=== PATIENT | female | born 2000 | race Caucasian/White ===

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

== ENCOUNTER 2022-05-01 18:12 | Emergency (ER) | payer BC ==
[~2022-05-01] VITALS: Ht 152.4 cm; Wt 62.6 kg
[~2022-05-01 18:12] MED LIST changes: +FAMO-90 PO; +IMO2 PO; +ONDA-188 PO
[2022-05-01 18:33] VITALS: BP 123/76
[2022-05-01] MEDS ORDERED: KETOROLAC 30 MG/ML VIAL IM ONE (19:00)
[2022-05-01 20:06] LABS: APPEARANCE,URINE CLEAR (CLEAR); BILIRUBIN,URINE NEGATIVE (NEGATIVE); BLOOD, URINE NEGATIVE (NEGATIVE); COLOR,URINE YELLOW (YELLOW); LEUKOCYTE ESTERASE ,URINE NEGATIVE (NEGATIVE); NITRITE, URINE NEGATIVE (NEGATIVE); UGLUCOSE NEGATIVE (NEGATIVE)
[2022-05-01] MEDS ORDERED: KETOROLAC 30 MG/ML VIAL ONE (20:23)
[2022-05-01] MEDS ORDERED: IBUP-2213 PO (20:43)
[2022-05-01] MEDS ORDERED: CYCL-711 PO (20:43)
[2022-05-01] MEDS ORDERED: LID5T TP (20:43)
[2022-05-01 20:53] VITALS: BP 98/60
--- NOTE | 2022-05-01 20:53 | NUR ---
Patient discharged with v/s stable. Written and verbal after care instructions given and explained. Patient alert, oriented and verbalized understanding of instructions. Ambulatory with steady gait. All questions addressed prior to discharge. ID band removed. Patient advised to follow up with PMD. Rx of FLEXERIL LIDODERM PATCH IBUPROFEN given. Patient educated on indication of medication including possible reaction and side effects. Opportunity to ask questions provided and answered.
== END 2022-05-01 20:53 | disposition home or self-care (01) ==
LOC: MED 18:12
DX: R07.81 Pleurodynia (principal); R03.0 Elevated blood-pressure reading, without diagnosis of hypertension; Z79.899 Other long term (current) drug therapy
CPT/HCPCS: 36415; 71045; 81003; 85379; 93005; 96372; 99285; J1885

== ENCOUNTER 2022-06-10 18:05 | Emergency (ER) | payer BC ==
[~2022-06-10] VITALS: Ht 154.9 cm; Wt 54.4 kg
[~2022-06-10 18:05] MED LIST changes: +CYCL-711 PO; +LID5T TP
[2022-06-10 18:14] VITALS: BP 121/75
[2022-06-10 20:00] LABS: APPEARANCE,URINE CLEAR (CLEAR); BILIRUBIN,URINE NEGATIVE (NEGATIVE); BLOOD, URINE 3+ (NEGATIVE); COLOR,URINE YELLOW (YELLOW); LEUKOCYTE ESTERASE ,URINE NEGATIVE (NEGATIVE); NITRITE, URINE NEGATIVE (NEGATIVE); PH,URINE 7.5 (5.0-9.0); UGLUCOSE NEGATIVE (NEGATIVE)
[2022-06-10 20:12] LABS: OTHER CASTS, URINE None Seen /LPF (None Seen); WBC,URINE 0-5 /HPF (0-5)
== END 2022-06-10 23:51 | disposition home or self-care (01) ==
LOC: MED 18:05
DX: N93.9 Abnormal uterine and vaginal bleeding, unspecified (principal); G43.909 Migraine, unspecified, not intractable, without status migrainosus; Z79.899 Other long term (current) drug therapy
CPT/HCPCS: 81001; 81025; 99283

== ENCOUNTER 2022-09-02 10:08 | Emergency (ER) | payer BC ==
[~2022-09-02] VITALS: Ht 149.9 cm; Wt 65.3 kg
[2022-09-02 10:12] VITALS: BP 118/70
--- NOTE | 2022-09-02 10:19 | NUR ---
AMBULATED TO BED 12
[2022-09-02 11:17] LABS: BASOPHILS % (AUTO) 0.5 % (0.0-2.0); EOSINOPHILS # (AUTO) 0.1 K/uL (0-0.4); EOSINOPHILS % (AUTO) 1.1 % (0.0-4.0); HEMATOCRIT 41.2 % (36-48); HEMOGLOBIN 14.1 g/dL (12.0-16.0); LYMPHOCYTES # (AUTO) 1.7 K/uL (2.5-16.5); LYMPHOCYTES % (AUTO) 33.4 % (20.5-51.1); MEAN CORPUSCULAR HEMOGLOBIN 28 pg (27-31); MEAN CORPUSCULAR HGB CONC 34 g/dL (33-37); MEAN CORPUSCULAR VOLUME 81.3 fL (80-94); MONOCYTES # (AUTO) 0.5 K/uL (0.8-1.0); MONOCYTES % (AUTO) 9.4 % (1.7-9.3); NEUTROPHILS # (AUTO) 2.9 K/uL (1.8-7.7); NEUTROPHILS % (AUTO) 55.6 % (42.2-75.2); PLATELET COUNT (AUTO) 231 K/uL (140-450); RED BLOOD CELL COUNT(AUTO) 5.07 MIL/uL (4.20-5.40); RED CELL DISTRIBUTION WIDTH 15.3 % (11.6-13.7); WHITE BLOOD COUNT (AUTO) 5.2 K/uL (4.5-11.0)
[2022-09-02 11:30] LABS: BILIRUBIN,URINE NEGATIVE (NEGATIVE); BLOOD, URINE 1+ (NEGATIVE); COLOR,URINE YELLOW (YELLOW); LEUKOCYTE ESTERASE ,URINE NEGATIVE (NEGATIVE); NITRITE, URINE NEGATIVE (NEGATIVE); PH,URINE 7.5 (5.0-9.0); UGLUCOSE NEGATIVE (NEGATIVE)
[2022-09-02 11:53] LABS: APPEARANCE,URINE SLIGHTLY CLOUDY (CLEAR)
[2022-09-02 14:21] VITALS: BP 118/70
[2022-09-02 14:22] LABS: WBC,URINE 0-5 /HPF (0-5)
--- NOTE | 2022-09-02 14:22 | NUR ---
Patient discharged with v/s stable. Written and verbal after care instructions given and explained. Patient verbalized understanding. Ambulatory with steady gait. All questions addressed prior to discharge. Advised to follow up with PMD.
== END 2022-09-02 14:11 | disposition home or self-care (01) ==
LOC: MED 10:08
DX: O20.0 Threatened abortion (principal); Z3A.01 Less than 8 weeks gestation of pregnancy; Z79.899 Other long term (current) drug therapy; Z79.1 Long term (current) use of non-steroidal anti-inflammatories (NSAID); Z91.013 Allergy to seafood
CPT/HCPCS: 36415; 76817; 81001; 81025; 84702; 85025; 86900; 86901; 99284; Q0092

== ENCOUNTER 2022-09-21 14:38 | Emergency (ER) | payer BC ==
[~2022-09-21] VITALS: Ht 152.4 cm; Wt 62.6 kg
[2022-09-21 14:54] VITALS: BP 116/69
--- NOTE | 2022-09-21 15:27 | NUR ---
AMB. TO BED W NO DISTRESS.
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
--- NOTE | 2022-09-21 17:38 | NUR ---
STAND BY FOR US AT BEDSIDE.
[2022-09-21 20:24] VITALS: BP 110/75
== END 2022-09-21 20:27 | disposition home or self-care (01) ==
LOC: MED 14:38
DX: O36.4XX0 Maternal care for intrauterine death, not applicable or unspecified (principal); Z3A.08 8 weeks gestation of pregnancy
CPT/HCPCS: 76817; 99284; Q0092